=== PATIENT | male | born 1975 | race Caucasian/White ===

== ENCOUNTER 2021-09-03 08:56 | Emergency (ER) | payer SELFPAY ==
[~2021-09-03] VITALS: Ht 182.9 cm; Wt 98.9 kg
--- NOTE | 2021-09-03 09:09 | NUR ---
[facility] NUMBER [phone]
--- NOTE | 2021-09-03 09:12 | NUR ---
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
--- NOTE | 2021-09-03 09:18 | NUR ---
LAB AT BEDSIDE
--- NOTE | 2021-09-03 09:21 | NUR ---
[facility] UNIT#[id number] AT BEDSIDE TALKING TO THE PATIENT
--- NOTE | 2021-09-03 09:29 | NUR ---
PHLEBATOMIST AT THE BEDSIDE
--- NOTE | 2021-09-03 09:31 | NUR ---
[facility] ED[employer] PAINTER AT THE BEDSIDE
--- NOTE | 2021-09-03 09:43 | NUR ---
ROSENDA ISRAEL [phone]
--- NOTE | 2021-09-03 09:49 | NUR ---
THE PATIENT IS ALERT AND ORIENTED X2. DENIES PAIN. REMAINS ON OXYGEN AT 15L/MIN VIA NON-REBREATHER MASK. ATTACHED TO THE MONITOR. WILL CONTINUE TO MONITOR THE PATIENT.
[2021-09-03 09:50] LABS: BASOPHILS # (AUTO) 0.1 K/uL (0.0-0.2); BASOPHILS % (AUTO) 0.9 % (0.0-2.0); EOSINOPHILS % (AUTO) 4.3 % (0.0-6.0); HEMATOCRIT 27 % (39-51); HEMOGLOBIN 8.6 g/dL (13.5-17.5); LYMPHOCYTES # (AUTO) 1.5 K/uL (0.8-4.8); LYMPHOCYTES % (AUTO) 22.9 % (20.0-44.0); MEAN CORPUSCULAR HGB CONC 32 g/dl (31.0-36.0); MEAN CORPUSCULAR VOLUME 78 fL (80-96); MONOCYTES # (AUTO) 0.6 K/uL (0.1-1.30); MONOCYTES % (AUTO) 8.6 % (2.0-12.0); NEUTROPHILS # (AUTO) 4.2 K/uL (1.8-8.9); NEUTROPHILS % (AUTO) 63.3 % (43.0-81.0); PLATELET COUNT (AUTO) 442 K/uL (150-450); RED BLOOD CELL COUNT(AUTO) 3.43 MIL/uL (4.5-6.0); WHITE BLOOD COUNT (AUTO) 6.7 K/uL (4.3-11.0)
--- NOTE | 2021-09-03 09:55 | NUR ---
DR HEATH MADE AWARE THAT THE PATIENT IS NOT ABLE TO PROVIDE URINE AT THIS TIME. DR HEATH STATED THAT THERE IS NO NEED TO COLLECT URINE.
[2021-09-03 10:05] LABS: ALANINE AMINOTRANSFERASE 83 U/L (12-78); ALBUMIN 2.8 g/dL (3.4-5.0); ALCOHOL, BLOOD < 3 mg/dL (0-0); ALKALINE PHOSPHATASE 47 U/L (46-116); ASPARTATE AMINOTRANSFERASE 42 U/L (15-37); BILIRUBIN,DIRECT 0.1 mg/dL (0.0-0.2); BILIRUBIN,TOTAL 0.2 mg/dL (0.2-1.0); CALCIUM, SERUM 9.1 mg/dL (8.5-10.1); CARBON DIOXIDE 24 mmol/L (21-32); CHLORIDE 104 mmol/L (98-107); CREATININE 1.4 mg/dL (0.6-1.3); GLUCOSE 180 mg/dL (74-106); POTASSIUM 3.8 mmol/L (3.5-5.1); SODIUM SERUM 137 mmol/L (136-145); TOTAL PROTEIN, SERUM 6.9 g/dL (6.4-8.2); UREA NITROGEN, BLOOD 17 mg/dL (7-18)
[2021-09-03 10:07] LABS: ACETAMINOPHEN 0 ug/ml (10-30)
[2021-09-03] MEDS ORDERED: NALO4SPR BNOSTRILS (10:30)
--- NOTE | 2021-09-03 10:39 | NUR ---
PATIENT WILL BE PICKED UP BY FRIEND LINDY CONNELL IN 40MINS
--- NOTE | 2021-09-03 10:40 | NUR ---
THE PATIENT IS ALERT AND ORIENTED X3. DENIES PAIN. WILL CONTINUE TO MONITOR THE PATIENT.
--- NOTE | 2021-09-03 12:16 | NUR ---
The patient is alert and oriented x4. Denies pain. In room air and denies SOB. Respiration regular and unlabored. Patient discharged to home in stable condition. Written and verbal after care instructions given. Patient verbalizes understanding of instruction.Patient discharged to home in stable condition. Written and verbal after care instructions given. Patient verbalizes understanding of instruction.
[2021-09-03 12:17] VITALS: BP 116/64
== END 2021-09-03 12:17 | disposition home or self-care (01) ==
LOC: ER 08:58
DX: T40.5X1A Poisoning by cocaine, accidental (unintentional), initial encounter (principal); T40.1X1A Poisoning by heroin, accidental (unintentional), initial encounter; Y92.89 Other specified places as the place of occurrence of the external cause
CPT/HCPCS: 36415; 71045-TC; 80048-TC; 80076-TC; 85025-TC; G0480